=== PATIENT | male | born 1935 | race Caucasian/White ===

== ENCOUNTER 2019-03-28 02:10 | Emergency (ER) | payer MEDICARE, OTHER ==
[2019-03-28] MEDS ORDERED: Sodium Chloride 0.9% 10 ML Syringe FLUSH PRN (02:34)
[2019-03-28] MEDS: fentaNYL 100 MCG/2 ML SDV IVPUSH ONE ×2 (02:45→04:37)
[2019-03-28 02:49] LABS: SODIUM,NA 142 mmol/L (138-146)
[2019-03-28 02:50] LABS: CHLORIDE,CL 104 mmol/L (98-109)
[2019-03-28 02:51] LABS: ANION GAP 14.7 mmol/L (10-20)
--- NOTE | 2019-03-28 02:56 | EDM.PDOC ---
ED HPI GENERAL MEDICAL PROBLEM - General Chief Complaint: Abdominal Pain Stated Complaint: Abdominal / Chest Pain Time Seen by Provider: 03/28/19 02:48 Source of Information: Reports: Patient History Limitations: Reports: No Limitations - History of Present Illness INITIAL COMMENTS - FREE TEXT/NARRATIVE: Pt. presents to ER with complaints of abdominal and chest pain that started an hour and a half before coming to ER. Pt. lives at the [place] with his and drove himself in. He was diaphoretic on arrival to ER. Pt. states that the discomfort radiates into his back. Pt. has significant increase in discomfort with palpation of his abdomen. Pt. is unable to definitively recall and past medical history. He initially stated that he had a "gallstone" and states that they"broke it up with sound waves", relates that these were kidney stones. [place] in [place], so I have no reliable PMH. In evaluating his med record from [facility] (who he sees for ophtho) it appears that he has hypertension, dyslipidemia, and GERD. Med [place] were [place]. Pt. has a history of CAD, PE and is on Eliquis, BPH, and PTSD. No discussion of gallbladder disease or kidney stone; states this workup was in [place]. She does states that he had an NC with previous stenting. Pt. denies any recent illness. She states he was out working in his shop yesterday, but denied any complaints. She states that he has severe fatigue but he is no more fatigued than normal. Onset: Today Onset Date: 03/28/19 Location: Reports: Abdomen, Back Quality: Reports: Sharp, Stabbing Severity: Severe Associated Symptoms: Reports: Chest Pain, Diaphoresis, Malaise, Nausea/ Vomiting. Denies: Fever/Chills ED ROS GENERAL - Review of Systems Review Of Systems: See Below Constitutional: Reports: No Symptoms, Night Sweats, Diaphoresis. Denies: Fever , Chills, Weakness, Fatigue HEENT: Reports: No Symptoms Respiratory: Reports: No Symptoms Cardiovascular: Reports: Chest Pain Endocrine: Reports: No Symptoms GI/Abdominal: Reports: Abdominal Pain, Nausea, Vomiting. Denies: Hematemesis, Hematochezia, Melena : Reports: No Symptoms Musculoskeletal: Reports: No Symptoms Skin: Reports: No Symptoms Neurological: Reports: No Symptoms Psychiatric: Reports: No Symptoms Hematologic/Lymphatic: Reports: No Symptoms Immunologic: Reports: No Symptoms ED EXAM, GENERAL - Physical Exam Exam: See Below Exam Limited By: No Limitations General Appearance: Alert, WD/WN, No Apparent Distress Eye Exam: Bilateral Eye: EOMI, PERRL Throat/Mouth: Normal Inspection, Normal Lips, Normal Teeth, Normal Gums, Normal Oropharynx, Normal Voice, No Airway Compromise Head: Atraumatic, Normocephalic Neck: Normal Inspection, Supple, Non-Tender, Full Range of Motion Respiratory/Chest: No Respiratory Distress, Lungs Clear, Normal Breath Sounds, No Accessory Muscle Use Cardiovascular: Normal Peripheral Pulses, No Edema, No JVD, No Rub, Systolic Murmur GI/Abdominal: Normal Bowel Sounds, Soft, No Distention, Tender (in epigastrium) (Male) Exam: Deferred Rectal (Males) Exam: Deferred Back Exam: Normal Inspection, Full Range of Motion Extremities: Normal Inspection, Normal Range of Motion, Non-Tender, No Pedal Edema Neurological: Alert, Oriented, CN II-XII Intact, Normal Gait, No Motor/Sensory Deficits, Inattentive Psychiatric: Normal Affect, Normal Mood Skin Exam: Warm, Dry, Intact, No Rash, Pallor Lymphatic: No Adenopathy EKG INTERPRETATION Rhythm: NSR QRS: RBBB Course - Orders/Labs/Meds Orders: Active Orders 24 hr Category Date Time Status EKG Documentation Completion [RC] STAT Care 03/28/19 02:34 Active Chest Abdomen Pelvis w Cont [CT] Stat Exams 03/28/19 02:47 Ordered UA W/MICROSCOPIC [URIN] Stat Lab 03/28/19 03:38 Ordered Sodium Chloride 0.9% [Saline Flush] Med 03/28/19 02:34 Active 10 ml FLUSH ASDIRECTED PRN Peripheral IV Insertion Adult [OM.PC] Routine Oth 03/28/19 02:34 Ordered Medication Orders Sodium Chloride (Saline Flush) 10 ml FLUSH ASDIRECTED PRN PRN Reason: Keep Vein Open Labs: Laboratory Tests 03/28/19 03/28/19 03/28/19 Range/Units 02:37 02:37 02:37 WBC 12.7 H (4.0-10.0) x10^3/uL RBC 4.74 (4.5-6.0) x10^6/uL Hgb 14.7 (14.0-18.0) g/dL Hct 43.3 (40.0-52.0) % MCV 91.4 (78.0-93.0) fL MCH 31.0 (26.0-32.0) pg MCHC 33.9 (32.0-36.0) g/dL RDW Coeff of Gunnar 13.3 (10.0-15.0) % Plt Count 201 (130-400) x10^3/uL Neut % (Auto) 74.6 (50.0-80.0) % Lymph % (Auto) 16.5 L (25.0-50.0) % Stoddard % (Auto) 6.3 (2.0-11.0) % Eos % (Auto) 2.4 (0.0-4.0) % Baso % (Auto) 0.2 (0.2-1.2) % PT 10.8 (10.0-12.8) SEC INR 1.0 L (2.0-3.5) POC Sodium Sodium 142 (138-146) mmol/L POC Potassium Potassium 3.7 (3.5-4.9) mmol/L POC Chloride Chloride 104 (98-109) mmol/L Carbon Dioxide 27 (24-29) mmol/L POC Total CO2 Anion Gap 14.7 (10-20) mmol/L POC Anion Gap POC BUN BUN 15 (8-26) mg/dL Creatinine 0.9 (0.6-1.3) mg/dL POC Creatinine Est Cr Clr Drug Dosing TNP Estimated GFR (MDRD) > 60 Glucose 133 H (70-105) mg/dL POC Glucose Calcium 8.9 (8.5-10.1) mg/dL Corrected Calcium 9.30 (8.5-10.1) mg/dL Total Bilirubin 0.6 (0.2-1.0) mg/dL AST 20 (15-37) U/L ALT 24 (16-63) U/L Alkaline Phosphatase 78 (46-116) U/L POC Troponin I (0.00-0.08) ng/mL Troponin I Cancelled Total Protein 7.0 (6.4-8.2) g/dL Albumin 3.5 (3.4-5.0) g/dL Globulin 3.5 Albumin/Globulin Ratio 1.00 03/28/19 03/28/19 Range/Units 02:45 02:48 WBC (4.0-10.0) x10^3/uL RBC (4.5-6.0) x10^6/uL Hgb (14.0-18.0) g/dL Hct (40.0-52.0) % MCV (78.0-93.0) fL MCH (26.0-32.0) pg MCHC (32.0-36.0) g/dL RDW Coeff of Gunnar (10.0-15.0) % Plt Count (130-400) x10^3/uL Neut % (Auto) (50.0-80.0) % Lymph % (Auto) (25.0-50.0) % Stoddard % (Auto) (2.0-11.0) % Eos % (Auto) (0.0-4.0) % Baso % (Auto) (0.2-1.2) % PT (10.0-12.8) SEC INR (2.0-3.5) POC Sodium Cancelled Sodium (138-146) mmol/L POC Potassium Cancelled Potassium (3.5-4.9) mmol/L POC Chloride Cancelled Chloride (98-109) mmol/L Carbon Dioxide (24-29) mmol/L POC Total CO2 Cancelled Anion Gap (10-20) mmol/L POC Anion Gap Cancelled POC BUN Cancelled BUN (8-26) mg/dL Creatinine (0.6-1.3) mg/dL POC Creatinine Cancelled Est Cr Clr Drug Dosing Estimated GFR (MDRD) Glucose (70-105) mg/dL POC Glucose Cancelled Calcium (8.5-10.1) mg/dL Corrected Calcium (8.5-10.1) mg/dL Total Bilirubin (0.2-1.0) mg/dL AST (15-37) U/L ALT (16-63) U/L Alkaline Phosphatase (46-116) U/L POC Troponin I 0.04 (0.00-0.08) ng/mL Troponin I Total Protein (6.4-8.2) g/dL Albumin (3.4-5.0) g/dL Globulin Albumin/Globulin Ratio Meds: Medications Generic Name Dose Route Start Last Admin Trade Name Freq PRN Reason Stop Dose Admin Sodium Chloride 10 ml 03/28/19 02:34 Saline Flush FLUSH ASDIRECTED PRN Keep Vein Open Discontinued Medications Generic Name Dose Route Start Last Admin Trade Name Freq PRN Reason Stop Dose Admin Fentanyl 50 mcg 03/28/19 02:37 Sublimaze IVPUSH 03/28/19 02:38 ONETIME ONE Fentanyl 50 mcg 03/28/19 04:28 Sublimaze IVPUSH 03/28/19 04:29 ONETIME ONE Iopamidol 100 ml 03/28/19 03:08 03/28/19 03:27 Isovue-300 (61%) IVPUSH 03/28/19 03:09 100 ml ONETIME ONE Administration Ondansetron HCl 4 mg 03/28/19 03:01 Zofran IVPUSH 03/28/19 03:02 ONETIME ONE - Radiology Interpretation Free Text/Narrative:: CT chest, abd. and pelvis. Negative for aortic aneurysm Large gallstone with evidence of gallbladder wall thickening. 4 mm R renal stone with no hydronephrosis Gastroparesis - Re-Assessments/Exams Free Text/Narrative Re-Assessment/Exam: Pt. was extremely uncomfortable and diaphoretic on arrival to ED. IV access was established x 2. Initial BP was in the 150/90s range. Pt. was given approx. 25mcg of fentanyl IV and his BP dropped to 95 systolic. Pt. heart rate did decrease from approx. 60 down to around 35 on several occasions as well. He did report a significant improvement in his pain. He was nauseated and was given zofran 4mg IV. Labs were run on ISTAT to obtain GFR so emergent CT chest, abdomen and pelvis could be obtained; pt. symptoms are worrisome for TAA/AAA. Departure - Departure Time of Disposition: 04:33 Disposition: DC/Tfer to Acute Hospital 02 Clinical Impression: Cholecystitis, Gastroparesis - Discharge Information Referrals: PCP,Not In Area [Primary Care Provider] - Forms: ED Department Discharge, Interfacility Transfer EMTALA - Problem List Review Problem List Initiated/Reviewed/Updated: Yes - My Orders Last 24 Hours: My Active Orders 03/28/19 02:34 EKG Documentation Completion [RC] STAT Sodium Chloride 0.9% [Saline Flush] 10 ml FLUSH ASDIRECTED PRN Peripheral IV Insertion Adult [OM.PC] Routine 03/28/19 02:47 Chest Abdomen Pelvis w Cont [CT] Stat 03/28/19 03:38 UA W/MICROSCOPIC [URIN] Stat - Assessment/Plan Last 24 Hours: My Active Orders 03/28/19 02:34 EKG Documentation Completion [RC] STAT Sodium Chloride 0.9% [Saline Flush] 10 ml FLUSH ASDIRECTED PRN Peripheral IV Insertion Adult [OM.PC] Routine 03/28/19 02:47 Chest Abdomen Pelvis w Cont [CT] Stat 03/28/19 03:38 UA W/MICROSCOPIC [URIN] Stat Plan: Pt. will be transferred to [facility]. [facility], but given his history of bradycardia and hypotension tonight, he needs to go to a facility with interventional cardiology/electrophysiology which is not available at the [facility]. Discussed with with patient. Pt. can receive IV fentanyl 50mcg per hour for pain control.
[2019-03-28] MEDS ORDERED: Ondansetron 4 MG/2 ML SDV IVPUSH ONE (03:01)
[2019-03-28] MEDS ORDERED: Iopamidol 612 MG/ML 100 ML Bottle IVPUSH ONE (03:08)
[2019-03-28] MEDS ORDERED: fentaNYL 100 MCG/2 ML SDV IVPUSH ONE (04:28)
--- NOTE | 2019-03-28 07:32 | CT ---
[id number] CT/CT Chest Abdomen Pelvis W IV Exam: CT Chest Abdomen Pelvis W IV Clinical Data: CHEST PAIN ABDOMINAL PAIN COMPARISON: NO PREVIOUS SIMILAR EXAM IS AVAILABLE FINDINGS: There is evidence of cholecystolithiasis and probable cholecystitis The appendix is normal The pelvis shows no mass or adenopathy The lungs are clear The thoracic aorta and abdominal aorta are intact There are diffuse atheromatous calcifications There is no mediastinal mass or adenopathy The liver and spleen, adrenals, kidneys, and pancreas show no acute abnormalities There is no bowel obstruction or bowel wall thickening There is no pneumatosis The mesenteric vessels demonstrate normal enhancement There is moderate distention of the gallbladder There is an occasional renal cyst and minimal nephrolithiasis IMPRESSION: CHOLECYSTOLITHIASIS AND PROBABLE CHOLECYSTITIS REPORT PROVIDED AT TIME OF EXAM Senthil Mendiola MD 03/28/19 0731 Thank you for allowing us to participate in the care of your patient.
== END 2019-03-28 05:43 | disposition short-term general hospital (02) ==
LOC: VM.ED 02:10
DX: K81.9 Cholecystitis, unspecified (principal); K31.84 Gastroparesis; I25.2 Old myocardial infarction; I25.10 Atherosclerotic heart disease of native coronary artery without angina pectoris; Z79.01 Long term (current) use of anticoagulants; Z86.711 Personal history of pulmonary embolism
CPT/HCPCS: 71260; 74177; 80053; 81001; 84484; 85025; 85610; 93005; 93010; 96374; 96376; 99284; 99285; J3010; Q9967

== ENCOUNTER 2021-06-02 13:16 | Emergency (ER) | payer OTHER ==
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
[2021-06-02 13:36] VITALS: BP 129/84; PULSE 90
[2021-06-02] MEDS ORDERED: Diphtheria,Pertussis(Acell),Tetanus Vaccine 0.5 ML Syringe IM ONE (13:44)
== END 2021-06-02 14:00 | disposition home or self-care (01) ==
LOC: VM.ED 13:16
DX: S80.212A Abrasion, left knee, initial encounter (principal); S80.211A Abrasion, right knee, initial encounter; Z88.5 Allergy status to narcotic agent; Z88.8 Allergy status to other drugs, medicaments and biological substances; Z23 Encounter for immunization; Z79.82 Long term (current) use of aspirin; Z79.01 Long term (current) use of anticoagulants; Z79.899 Other long term (current) drug therapy; W22.09XA Striking against other stationary object, initial encounter
CPT/HCPCS: 90471; 90715; 99283